=== PATIENT | female | born 1980 | race Caucasian/White ===

== ENCOUNTER 2017-07-26 11:33 | Emergency (ER) | payer BC ==
[2017-07-26] MEDS ORDERED: NS 0.9% 1000 ML* 1,000 ML IV ONE (13:07)
--- NOTE | 2017-07-26 13:41 | RAD ---
HISTORY: Palpitations, CHF, pneumonia COMPARISONS: August 04, 2007 VIEWS: 4: Frontal dual-energy and lateral views of the chest. FINDINGS: CARDIOMEDIASTINAL SILHOUETTE: The cardiomediastinal silhouette is normal. JENNY: The jenny are normal. PLEURA: The costophrenic angles are sharp. No pleural abnormalities are noted. LUNG PARENCHYMA: The lungs are clear. ABDOMEN: The upper abdomen is clear. There is no subphrenic gas. BONES AND SOFT TISSUES: Mild degenerative changes are noted of the spine OTHER: None. IMPRESSION: NO ACTIVE CARDIOPULMONARY DISEASE.
[2017-07-26 13:54] LABS: Hematocrit 42 % (35-47); Hemoglobin 14.3 g/dl (12.0-16.0); Mean Corpuscular HGB Conc 34 g/dl (31-36); Mean Corpuscular Hemoglobin 32 pg (27-31); Mean Corpuscular Volume 94 fL (80-97); Mean Platelet Volume 10 um3 (7.4-10.4); Red Blood Count 4.42 10^6/ul (4.0-5.4); Red Cell Distribution Width 13 % (10.5-15); White Blood Count 5.2 10^3/ul (3.5-10.8)
[2017-07-26 14:03] VITALS: BP 142/95
[2017-07-26 14:12] LABS: Albumin 4.9 g/dL (3.2-5.2); Calcium 9.7 mg/dL (8.6-10.3); EGFR African American 143.9 (>60); EGFR Non-African American 111.9 (>60); Globulin 3.2 g/dL (2-4); Magnesium 2.3 mg/dL (1.9-2.7); Potassium 3.8 mmol/L (3.5-5.0); Total Protein 8.1 g/dL (6.4-8.9)
--- NOTE | 2017-07-26 15:46 | ED ---
Risa Guzman Thomas, scribed for Alberto Spivey MD on 07/26/17 at 1314 . Palpitations / Dysrhythmia - HPI Summary HPI Summary: The pt is a 37 y/o F presenting to the ED c/o palpitations characterized as flutters that she has noticed for years but especially in the last few weeks. The palpitations increased in frequency this AM at 10:30, prompting an ED visit. She has three cups of coffee in the AM, she drinks decaffeinated tea. She does not drink soda or use tobacco. Per her , who is in the room, sometimes she calls me completely panicked. They both agree that the patient has been more anxious in the last month. The patient intentionally lost quite a bit of weigh tin the last 6 months. There is no known trigger to these palpitations. In the examination room, PVCs are visible on the monitor. She seems to be anxious in the examination room. Pt denies abd pain, SOB, and CP. She has no other complaintsPMHx: anxiety, low white blood cell count. PSHx: tubal ligation. SHx: no smoking, no alcohol use, no illicit drug use .FHx: negative for thyroid disease. Her PCP is Dr. Stauffer, and she sees Dr. Hinojosa for her low WBC count. 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 - Allergy/Home Medications Allergies/Adverse Reactions: Allergies Allergy/AdvReac Type Severity Reaction Status Date / Time No Known Allergies Allergy Verified 07/26/17 11:50 PMH/Surg Hx/FS Hx/Imm Hx Previously Healthy: No Endocrine/Hematology History: Reports: Other Endocrine/Hematological Disorders - Hx of low white blood cell count Psychiatric History: Reports: Hx Anxiety - Surgical History Surgery Procedure, Year, and Place: tubal ligation Infectious Disease History: No Infectious Disease History: Denies: Traveled Outside the [place] in Last 30 Days - Family History Known Family History: Negative: Other - NEG: thyroid disease - Social History Alcohol Use: None Substance Use Type: Reports: None Smoking Status (MU): Never Smoked Tobacco Review of Systems Negative: Fever, Chills, Fatigue Positive: Palpitations - chronic, but increased in frequency recently. Negative : Chest Pain Negative: Shortness Of Breath Negative: Abdominal Pain Positive: Anxious All Other Systems Reviewed And Are Negative: Yes Physical Exam - Summary Physical Exam Summary: The patient is well-nourished in no acute distress and in no acute pain. The skin is warm and dry and skin color reflects adequate perfusion. HEENT: The head is normocephalic and atraumatic. The pupils are equal and reactive. The conjunctivae are clear and without drainage. There is no exophthalmos. Nares are patent and without drainage. Mouth reveals moist mucous membranes and the throat is without erythema and exudate. The external ears are intact. The ear canals are patent and without drainage. The tympanic membranes are intact. Neck is supple with full range of motion and non-tender. There are no carotid bruits. There is no neck vein distension. The thyroid is palpable, is normal, and is not enlarged. Respiratory: Chest is non-tender. Lungs are clear to auscultation and breath sounds are symmetrical and equal. Cardiovascular: Heart is regular rate and rhythm. There is no murmur or rub auscultated. There is no peripheral edema and pulses are symmetrical and equal. Abdomen: The abdomen is soft and non-tender. There are normal bowel sounds heard in all four quadrants and there is no organomegaly palpated. Musculoskeletal: There is no back pain noted. Extremities are non-tender with full range of motion. There is good capillary refill. There is no peripheral edema or calf tenderness elicited. Neurological: Patient is alert and oriented to person, place and time. The patient has symmetrical motor strength in all four extremities. Cranial nerves are grossly intact. Deep tendon reflexes are symmetrical and equal in all four extremities. Psychiatric: She is somewhat anxious. She has appropriate affect and does not exhibit depression. Triage Information Reviewed: Yes Vital Signs On Initial Exam: Initial Vitals Temp Pulse Resp BP Pulse Ox 98.3 F 87 14 137/93 98 07/26/17 11:42 07/26/17 11:42 07/26/17 11:42 07/26/17 11:42 07/26/17 11:42 Vital Signs Reviewed: Yes Diagnostics - Vital Signs Vital Signs Temp Pulse Resp BP Pulse Ox 07/26/17 11:42 98.3 F 87 14 137/93 98 - Laboratory Lab Results: Lab Results 07/26/17 07/26/17 07/26/17 Range/Units 13:10 13:10 13:10 WBC 5.2 (3.5-10.8) 10^3/ul RBC 4.42 (4.0-5.4) 10^6/ul Hgb 14.3 (12.0-16.0) g/dl Hct 42 (35-47) % MCV 94 (80-97) fL MCH 32 H (27-31) pg MCHC 34 (31-36) g/dl RDW 13 (10.5-15) % Plt Count 230 (150-450) 10^3/ul MPV 10 (7.4-10.4) um3 Neut % (Auto) 76.9 (38-83) % Lymph % (Auto) 14.1 L (25-47) % [place] % (Auto) 6.0 (1-9) % Eos % (Auto) 0.2 (0-6) % Baso % (Auto) 2.8 H (0-2) % Absolute Neuts (auto) 4.0 (1.5-7.7) 10^3/ul Absolute Lymphs (auto) 0.7 L (1.0-4.8) 10^3/ul Absolute Monos (auto) 0.3 (0-0.8) 10^3/ul Absolute Eos (auto) 0 (0-0.6) 10^3/ul Absolute Basos (auto) 0.1 (0-0.2) 10^3/ul Absolute Nucleated RBC 0 10^3/ul Nucleated RBC % 0 Sodium 138 (133-145) mmol/L Potassium 3.8 (3.5-5.0) mmol/L Chloride 103 (101-111) mmol/L Carbon Dioxide 27 (22-32) mmol/L Anion Gap 8 (2-11) mmol/L BUN 9 (6-24) mg/dL Creatinine 0.60 (0.51-0.95) mg/dL Est GFR ( Amer) 143.9 (>60) Est GFR (Non-Af Amer) 111.9 (>60) BUN/Creatinine Ratio 15.0 (8-20) Glucose 88 (70-100) mg/dL Lactic Acid (0.5-2.0) mmol/L Calcium 9.7 (8.6-10.3) mg/dL Magnesium 2.3 (1.9-2.7) mg/dL Total Bilirubin 1.00 (0.2-1.0) mg/dL AST 16 (13-39) U/L ALT 15 (7-52) U/L Alkaline Phosphatase 35 (34-104) U/L Troponin I 0.00 (<0.04) ng/mL B-Natriuretic Peptide 27 ( - 100) pg/mL Total Protein 8.1 (6.4-8.9) g/dL Albumin 4.9 (3.2-5.2) g/dL Globulin 3.2 (2-4) g/dL Albumin/Globulin Ratio 1.5 (1-3) TSH Pending 07/26/17 Range/Units 13:10 WBC (3.5-10.8) 10^3/ul RBC (4.0-5.4) 10^6/ul Hgb (12.0-16.0) g/dl Hct (35-47) % MCV (80-97) fL MCH (27-31) pg MCHC (31-36) g/dl RDW (10.5-15) % Plt Count (150-450) 10^3/ul MPV (7.4-10.4) um3 Neut % (Auto) (38-83) % Lymph % (Auto) (25-47) % [place] % (Auto) (1-9) % Eos % (Auto) (0-6) % Baso % (Auto) (0-2) % Absolute Neuts (auto) (1.5-7.7) 10^3/ul Absolute Lymphs (auto) (1.0-4.8) 10^3/ul Absolute Monos (auto) (0-0.8) 10^3/ul Absolute Eos (auto) (0-0.6) 10^3/ul Absolute Basos (auto) (0-0.2) 10^3/ul Absolute Nucleated RBC 10^3/ul Nucleated RBC % Sodium (133-145) mmol/L Potassium (3.5-5.0) mmol/L Chloride (101-111) mmol/L Carbon Dioxide (22-32) mmol/L Anion Gap (2-11) mmol/L BUN (6-24) mg/dL Creatinine (0.51-0.95) mg/dL Est GFR ( Amer) (>60) Est GFR (Non-Af Amer) (>60) BUN/Creatinine Ratio (8-20) Glucose (70-100) mg/dL Lactic Acid 0.7 (0.5-2.0) mmol/L Calcium (8.6-10.3) mg/dL Magnesium (1.9-2.7) mg/dL Total Bilirubin (0.2-1.0) mg/dL AST (13-39) U/L ALT (7-52) U/L Alkaline Phosphatase (34-104) U/L Troponin I (<0.04) ng/mL B-Natriuretic Peptide ( - 100) pg/mL Total Protein (6.4-8.9) g/dL Albumin (3.2-5.2) g/dL Globulin (2-4) g/dL Albumin/Globulin Ratio (1-3) TSH Result Diagrams: 07/26/17 13:10 07/26/17 13:10 Lab Statement: Any lab studies that have been ordered have been reviewed, and results considered in the medical decision making process. - Radiology CXR Xray Interpretation: No Acute Changes - CXR shows no active cardiopulmonary disease. ED physician has reviewed this report and agrees. Radiology Interpretation Completed By: Radiologist - EKG 11:49 Cardiac Rate: NL - 90 BPM EKG Interpretation: Sinus rhythm. Nml axis. No ectopy. Nonspecific ST T-wave changes. No STEMI. Course/Dx - Course Assessment/Plan: The pt is a 37 y/o F presenting to the ED c/o palpitations characterized as flutters that she has noticed for years but especially in the last few weeks. The palpitations increased in frequency this AM at 10:30, prompting an ED visit. She has three cups of coffee in the AM, she drinks decaffeinated tea. She does not drink soda or use tobacco. Per her , who is in the room, sometimes she calls me completely panicked. They both agree that the patient has been more anxious in the last month. The patient intentionally lost quite a bit of weigh tin the last 6 months. There is no known trigger to these palpitations. In the examination room, PVCs are visible on the monitor. She seems to be anxious in the examination room. Pt denies abd pain, SOB, and CP. She has no other complaintsPMHx: anxiety, low white blood cell count. PSHx: tubal ligation. SHx: no smoking, no alcohol use, no illicit drug use .FHx: negative for thyroid disease. Her PCP is Dr. Stauffer, and she sees Dr. Hinojosa for her low WBC count. In the ED course the patient was given IV fluids. Bloodwork was obtained. CXR shows no active cardiopulmonary disease. EKG shows NSR with no STEMI. The patient is diagnosed with palpitations. The patient will be discharged home with follow up by PCP and cardiology. She is stable Patient is agreeable to this plan. - Diagnoses Differential Diagnosis/HQI/PQRI: Positive: Cardiomyopathy, Hypokalemia, Paroxymal SVT, Other - PAC, PVC, atrial fibrillation, anxiety Provider Diagnoses: Palpitations Discharge - Discharge Plan Condition: Stable Disposition: HOME Patient Education Materials: Palpitations (ED) Referrals: Marleni Stauffer MD [Primary Care Provider] - 3 Days Ren Gil MD [Medical Doctor] - 5 Days Additional Instructions: Follow up with your primary care provider. Also, strongly consider follow up with a alarm field technician. The documentation as recorded by the Risa stokes Thomas accurately reflects the service I personally performed and the decisions made by me, Alberto Spivey MD.
[2017-07-26 15:59] LABS: TSH (Thyroid Stimulating Horm) 1.68 mcIU/mL (0.34-5.60)
== END 2017-07-26 15:42 | disposition home or self-care (01) ==
LOC: ED 11:33
DX: R00.2 Palpitations (principal)
CPT/HCPCS: 36415; 71020; 80053; 83605; 83735; 83880; 84443; 84484; 85025; 93005; 96360; 99282

== ENCOUNTER 2017-07-28 14:55 | Emergency (ER) | payer BC ==
[2017-07-28] MEDS ORDERED: NS 0.9% 1000 ML* 1,000 ML IV ONE (15:16)
[2017-07-28 16:17] LABS: Urine Bilirubin Negative (Negative); Urine Glucose Negative (Negative); Urine Nitrite Negative (Negative)
[2017-07-28 16:29] LABS: Hematocrit 40 % (35-47); Hemoglobin 13.8 g/dl (12.0-16.0); Mean Corpuscular HGB Conc 34 g/dl (31-36); Mean Corpuscular Hemoglobin 32 pg (27-31); Mean Corpuscular Volume 94 fL (80-97); Mean Platelet Volume 10 um3 (7.4-10.4); Red Blood Count 4.31 10^6/ul (4.0-5.4); Red Cell Distribution Width 13 % (10.5-15); White Blood Count 5.7 10^3/ul (3.5-10.8)
[2017-07-28] MEDS ORDERED: LORazepam TAB(*) 0.5 MG PO ONE (16:34)
--- NOTE | 2017-07-28 16:36 | RAD ---
INDICATION: Palpitations COMPARISON: Similar chest x-ray July 26, 2017 TECHNIQUE: PA and lateral views of the chest were obtained. FINDINGS: The heart and mediastinum are normal in size and contour. The lungs are grossly clear. There is no evidence of large pleural effusion. Visualized bones are normal for the patient's age. There is no radiographic evidence of free air beneath the diaphragm IMPRESSION: No radiographic evidence of acute cardiopulmonary disease.
[2017-07-28 16:46] LABS: ALT 14 U/L (7-52); AST 15 U/L (13-39); Albumin 4.6 g/dL (3.2-5.2); Alkaline Phosphatase 37 U/L (34-104); Anion Gap 5 mmol/L (2-11); BUN/Creatinine Ratio 12.7 (8-20); Blood Urea Nitrogen 7 mg/dL (6-24); CO2 Carbon Dioxide 29 mmol/L (22-32); Calcium 9.6 mg/dL (8.6-10.3); Chloride 104 mmol/L (101-111); Creatine Kinase 59 U/L (10-223); EGFR African American 159.1 (>60); EGFR Non-African American 123.7 (>60); Globulin 3.3 g/dL (2-4); Glucose 89 mg/dL (70-100); Magnesium 2.1 mg/dL (1.9-2.7); Potassium 3.8 mmol/L (3.5-5.0); Sodium 138 mmol/L (133-145); Total Protein 7.9 g/dL (6.4-8.9)
[2017-07-28 17:14] LABS: TSH (Thyroid Stimulating Horm) 1.63 mcIU/mL (0.34-5.60)
[2017-07-28 18:23] VITALS: BP 133/91
--- NOTE | 2017-07-28 18:42 | ED ---
Osbaldo Guzman Angela, scribed for Gerardo Griffith MD on 07/28/17 at 1533 . Palpitations / Dysrhythmia - HPI Summary HPI Summary: This pt is a 37 y/o female presenting [facility] c/o heart palpitations today. Pt reports that she was in the ED 2 days ago for the same complaint, and was told she had PVCs. She states that she was told to follow up with a construction supervisor/carpenter in 2 weeks. Pt notes she was feeling fine yesterday. She reports noticing heart palpitations over the past month but has been worsening in the past week. Pt denies chest pain. She endorses mild SOB and mild light-headedness. PMHx: anxiety. She denies PMHx of cardiac problems. - History of Current Complaint Time Seen by Provider: 07/28/17 15:15 Hx Obtained From: Patient Onset/Duration: Sudden Onset - today, Lasting Weeks - intermittent palpitations Character: Pounding Associated Signs & Symptoms: Lightheadedness, Shortness of Breath - Allergy/Home Medications Allergies/Adverse Reactions: Allergies Allergy/AdvReac Type Severity Reaction Status Date / Time No Known Allergies Allergy Verified 07/26/17 11:50 PMH/Surg Hx/FS Hx/Imm Hx Endocrine/Hematology History: Reports: Other Endocrine/Hematological Disorders - Hx of low white blood cell count Denies: Hx Diabetes Cardiovascular History: Denies: Hx Hypertension Psychiatric History: Reports: Hx Anxiety - Surgical History Surgery Procedure, Year, and Place: tubal ligation - Family History Known Family History: Negative: Other - NEG: thyroid disease - Social History Alcohol Use: None Hx Substance Use: No Substance Use Type: Reports: None Hx Tobacco Use: No Smoking Status (MU): Never Smoked Tobacco Review of Systems Negative: Fever, Chills Eyes: Negative Positive: Palpitations. Negative: Chest Pain Positive: Shortness Of Breath Musculoskeletal: Negative Neurological: Other - light-headedness All Other Systems Reviewed And Are Negative: Yes Physical Exam - Summary Physical Exam Summary: VITAL SIGNS: Reviewed. GENERAL: Patient is a well-developed and nourished female who is lying comfortable in the stretcher. Patient is not in any acute respiratory distress. Pt is very anxious. HEAD AND FACE: No signs of trauma. No ecchymosis, hematomas or skull depressions. No sinus tenderness. EYES: PERRLA, EOMI x 2, No injected conjunctiva, no nystagmus. EARS: Hearing grossly intact. Ear canals and tympanic membranes are within normal limits. MOUTH: Oropharynx within normal limits. NECK: Supple, trachea is midline, no adenopathy, no JVD, no carotid bruit, no c- spine tenderness, neck with full ROM. CHEST: Symmetric, no tenderness at palpation LUNGS: Clear to auscultation bilaterally. No wheezing or crackles. CVS: Regular rate and rhythm, S1 and S2 present, no murmurs or gallops appreciated. ABDOMEN: Soft, non-tender. No signs of distention. No rebound no guarding, and no masses palpated. Bowel sounds are normal. EXTREMITIES: FROM in all major joints, no edema, no cyanosis or clubbing. NEURO: Alert and oriented x 3. No acute neurological deficits. Speech is normal and follows commands. SKIN: Dry and warm Triage Information Reviewed: Yes Vital Signs On Initial Exam: Initial Vitals Temp Pulse Resp BP Pulse Ox 99.2 F 84 22 120/82 97 07/28/17 15:50 07/28/17 15:50 07/28/17 15:50 07/28/17 15:50 07/28/17 15:50 Vital Signs Reviewed: Yes Diagnostics - Vital Signs Vital Signs Temp Pulse Resp BP Pulse Ox 07/28/17 18:00 81 18 133/91 98 07/28/17 17:30 71 16 118/78 98 07/28/17 17:00 75 19 115/77 99 07/28/17 16:39 19 07/28/17 16:34 76 17 97 07/28/17 16:33 76 16 116/71 97 07/28/17 16:32 82 120/90 07/28/17 15:50 99.2 F 84 22 120/82 97 - Laboratory Lab Results: Lab Results 07/28/17 07/28/17 07/28/17 Range/Units 13:45 16:17 16:17 WBC 5.7 (3.5-10.8) 10^3/ul RBC 4.31 (4.0-5.4) 10^6/ul Hgb 13.8 (12.0-16.0) g/dl Hct 40 (35-47) % MCV 94 (80-97) fL MCH 32 H (27-31) pg MCHC 34 (31-36) g/dl RDW 13 (10.5-15) % Plt Count 234 (150-450) 10^3/ul MPV 10 (7.4-10.4) um3 Neut % (Auto) 72.9 (38-83) % Lymph % (Auto) 17.9 L (25-47) % [place] % (Auto) 8.1 (1-9) % Eos % (Auto) 0.6 (0-6) % Baso % (Auto) 0.5 (0-2) % Absolute Neuts (auto) 4.1 (1.5-7.7) 10^3/ul Absolute Lymphs (auto) 1.0 (1.0-4.8) 10^3/ul Absolute Monos (auto) 0.5 (0-0.8) 10^3/ul Absolute Eos (auto) 0 (0-0.6) 10^3/ul Absolute Basos (auto) 0 (0-0.2) 10^3/ul Absolute Nucleated RBC 0.01 10^3/ul Nucleated RBC % 0.1 Sodium 138 (133-145) mmol/L Potassium 3.8 (3.5-5.0) mmol/L Chloride 104 (101-111) mmol/L Carbon Dioxide 29 (22-32) mmol/L Anion Gap 5 (2-11) mmol/L BUN 7 (6-24) mg/dL Creatinine 0.55 (0.51-0.95) mg/dL Est GFR ( Amer) 159.1 (>60) Est GFR (Non-Af Amer) 123.7 (>60) BUN/Creatinine Ratio 12.7 (8-20) Glucose 89 (70-100) mg/dL Calcium 9.6 (8.6-10.3) mg/dL Magnesium 2.1 (1.9-2.7) mg/dL Total Bilirubin 0.60 (0.2-1.0) mg/dL AST 15 (13-39) U/L ALT 14 (7-52) U/L Alkaline Phosphatase 37 (34-104) U/L Total Creatine Kinase 59 (10-223) U/L Troponin I 0.00 (<0.04) ng/mL Total Protein 7.9 (6.4-8.9) g/dL Albumin 4.6 (3.2-5.2) g/dL Globulin 3.3 (2-4) g/dL Albumin/Globulin Ratio 1.4 (1-3) TSH 1.63 (0.34-5.60) mcIU/mL Beta HCG, Quant < 0.60 mIU/mL Urine Color Yellow Urine Appearance Clear Urine pH 8 (5-9) Ur Specific [place] 1.005 L (1.010-1.030) Urine Protein Negative (Negative) Urine Ketones Negative (Negative) Urine Blood Negative (Negative) Urine Nitrate Negative (Negative) Urine Bilirubin Negative (Negative) Urine Urobilinogen Negative (Negative) Ur Leukocyte Esterase Negative (Negative) Urine Glucose Negative (Negative) Result Diagrams: 07/28/17 16:17 07/28/17 16:17 Lab Statement: Any lab studies that have been ordered have been reviewed, and results considered in the medical decision making process. - Radiology Chest XR Xray Interpretation: No Acute Changes - IMPRESSION: No radiographic evidence of acute cardiopulmonary disease. ED physician has reviewed this radiology report and agrees. Radiology Interpretation Completed By: Radiologist - EKG 1529 Cardiac Rate: NL - 74 bpm EKG Rhythm: Sinus Rhythm ST Segment: Normal EKG Interpretation: No ST elevation. Re-Evaluation - Re-Evaluation First Eval Re-Evaluation Time: 17:38 Comment: I reviewed the XR results with the pt. Course/Dx - Course Assessment/Plan: This pt is a 37 y/o female presenting to [facility] c/o heart palpitations today. Pt reports that she was in the ED 2 days ago for the same complaint, and was told she had PVCs. She states that she was told to follow up with a construction supervisor/carpenter in 2 weeks. Pt notes she was feeling fine yesterday. She reports noticing heart palpitations over the past month but has been worsening in the past week. Pt denies chest pain. She endorses mild SOB and mild light- headedness. PMHx: anxiety. She denies PMHx of cardiac problems. Test results are without any significant abnormalities. TSH is within normal limits. UA is negative. Chest XR is negative for acute pathology. In the ED course, the pt was very anxious, therefore the pt was given 1 dose of Ativan and her symptoms resolved. At this point, the pt is completely asymptomatic and EKG didnt show any abnormality. Therefore, the pt will be discharged home with follow up from her PCP. Pt reports she has an upcoming appointment with cardiology next week. The pt was given one dose of Atarax for anxiety. Pt was instructed to return to the ED if she develops any worsening symptoms. Pt is hemodynamically stable, alert and oriented x3. - Diagnoses Differential Diagnosis/HQI/PQRI: Positive: Hypokalemia, Medication Induced, Paroxymal SVT, V-Tach Provider Diagnoses: Palpitations Discharge - Discharge Plan Condition: Stable Disposition: HOME Prescriptions: hydrOXYzine HCL TAB* [Atarax 25 MG TAB*] 25 mg PO TID PRN #30 tab PRN Reason: Agitation Patient Education Materials: Palpitations (ED) Referrals: Marleni Stauffer MD [Primary Care Provider] - Additional Instructions: Please follow up with your primary care provider. The documentation as recorded by the Osbaldo stokes Angela accurately reflects the service I personally performed and the decisions made by Nacho harry Walter, MD.
== END 2017-07-28 18:30 | disposition home or self-care (01) ==
LOC: ED 14:55
DX: R00.2 Palpitations (principal); F41.9 Anxiety disorder, unspecified
CPT/HCPCS: 36415; 71020; 80053; 81003; 82550; 83735; 84443; 84484; 84702; 85025; 93005; 96360; 99283; A9270-GY

== ENCOUNTER 2019-10-15 11:33 | Emergency (ER) | payer BC ==
[2019-10-15 11:51] VITALS: BP 127/85
--- NOTE | 2019-10-15 11:59 | UC ---
Lower Extremity/Ankle HPI - HPI Summary HPI Summary: 39 yo female presents with LEFT foot pain. She tells me that for the last 2 weeks she has been noticing pain on the bottom of her foot at the base of her 2nd and 3rd toes. Pain is worse with weight bearing first thing in the morning or after prolonged sitting. Feels like a stab going into her foot. Denies specific injury. She has not tried anything OTC for her symptoms. - History of Current Complaint Chief Complaint: UCLowerExtremity Stated Complaint: FOOT INJURY Time Seen by Provider: 10/15/19 11:59 Hx Obtained From: Patient Hx Last Menstrual Period: 09/19 Onset/Duration: Gradual Onset Severity Initially: Mild Severity Currently: Moderate Pain Intensity: 5 Pain Scale Used: 0-10 Numeric - Allergies/Home Medications Allergies/Adverse Reactions: Allergies Allergy/AdvReac Type Severity Reaction Status Date / Time No Known Allergies Allergy Verified 10/15/19 11:51 Home Medications: Home Medications Escitalopram Oxalate [Lexapro 10 mg] 10 mg PO DAILY 10/15/19 [History Confirmed 10/15/19] PMH/Surg Hx/FS Hx/Imm Hx Psychological History: Anxiety, Depression - Surgical History Surgical History: Yes Surgery Procedure, Year, and Place: tubal ligation - Family History Known Family History: Negative: Other - NEG: thyroid disease - Social History Occupation: Employed Full-time Lives: With Family Alcohol Use: Occasionally Substance Use Type: None Smoking Status (MU): Former Smoker - Immunization History Most Recent Influenza Vaccination: none Most Recent Tetanus Shot: 09/23/2014 Most Recent Pneumonia Vaccination: none Review of Systems All Other Systems Reviewed And Are Negative: No Constitutional: Positive: Negative Skin: Positive: Negative Respiratory: Positive: Negative Cardiovascular: Positive: Negative Musculoskeletal: Positive: Other: - Foot pain Neurological: Positive: Negative Psychological: Positive: Negative Physical Exam - Summary Physical Exam Summary: GENERAL: NAD. WDWN. No pain distress. SKIN: No rashes, sores, lesions, or open wounds. CHEST: No accessory muscle use. Breathing comfortably and in no distress. CV: Pulses intact PT and DP. Cap refill <2seconds MSK: LEFT FOOT: Mild TTP at plantar aspect 2nd-3rd MTPs. FROM no pain. No dorsal pain. NEURO: Alert. Sensations intact and symmetric B/L LEs PSYCH: Age appropriate behavior. Triage Information Reviewed: Yes Vital Signs: Initial Vital Signs Temp 98.9 F 10/15/19 11:48 Pulse 82 10/15/19 11:48 Resp 18 10/15/19 11:48 BP 127/85 10/15/19 11:48 Pulse Ox 97 10/15/19 11:48 Vital Signs Reviewed: Yes Diagnostics - Radiology Foot XR Radiology Interpretation Completed By: Radiologist Summary of Radiographic Findings: IMPRESSION: OSTEOARTHRITIS. NO ACUTE OSSEOUS INJURY. IF SYMPTOMS PERSIST, RECOMMEND REPEAT IMAGING. Lower Extremity Course/Dx - Course Course Of Treatment: XR as above. Suspect tendinitis or ramsay's neuroma. Recommend trying OTC shoe inserts for comfort. F/u with ortho if symptoms do not improve. She declined a walking boot today - Differential Dx/Diagnosis Provider Diagnosis: Foot pain Discharge ED - Sign-Out/Discharge Documenting (check all that apply): Patient Departure All imaging exams completed and their final reports reviewed: Yes - Discharge Plan Condition: Stable Disposition: HOME Patient Education Materials: [place] Neuroma (ED), Metatarsalgia (DC) Referrals: Marleni Stauffer MD [Primary Care Provider] - Ricky Humphries MD [Medical Doctor] - If Needed Additional Instructions: If you develop a fever, shortness of breath, chest pain, new or worsening symptoms - please call your PCP or go to the ED immediately. Your X-ray was normal today. I recommend that you try an over the counter shoe insert with foot pad gel cushion. Give this about 1 week to see if your symptoms improve. If there is no improvement or your symptoms worsen - please call Orthopedics at the number below to schedule an appointment for a recheck - Billing Disposition and Condition Condition: STABLE Disposition: Home
== END 2019-10-15 12:40 | disposition home or self-care (01) ==
LOC: UCEAST 11:33
DX: M25.572 Pain in left ankle and joints of left foot (principal); M19.072 Primary osteoarthritis, left ankle and foot; F41.9 Anxiety disorder, unspecified; F32.9 Major depressive disorder, single episode, unspecified; Z79.899 Other long term (current) drug therapy; Z87.891 Personal history of nicotine dependence
CPT/HCPCS: 99211; G0463